=== PATIENT | male | born 1945 | race Caucasian/White ===

== ENCOUNTER → 2016-09-08 | Outpatient (CLI) | payer MEDICARE, OTHER | END | disposition home or self-care (01) | LOC: CFH 14:45 | PROVIDERS: ATTEND Family Medicine | DX: K44.9 Diaphragmatic hernia without obstruction or gangrene (principal) | CPT/HCPCS: 74150 ==

== ENCOUNTER → 2016-11-10 | Outpatient (CLI) | payer MEDICARE, OTHER | END | disposition home or self-care (01) | LOC: CFH 09:44 | PROVIDERS: ATTEND Internal Medicine Cardiovascular Disease | DX: I10 Essential (primary) hypertension (principal) | CPT/HCPCS: 93306 ==

== ENCOUNTER 2020-10-20 10:59 | Outpatient (CLI) | payer MEDICARE, OTHER | END 2020-10-20 23:59 | disposition home or self-care (01) | LOC: LAB 10:59 | PROVIDERS: ATTEND Physician Assistant | DX: N40.1 Benign prostatic hyperplasia with lower urinary tract symptoms (principal) | CPT/HCPCS: 36415; 84153; G0103 ==